=== PATIENT | female | born 1955 | race Caucasian/White ===

== ENCOUNTER 2016-07-01 19:35 | Emergency (ER) | payer OTHER ==
[~2016-07-01] VITALS: Ht 152.4 cm; Wt 81.4 kg
[~2016-07-01 19:35] MED LIST: ASPI81 PO; ATOR80TA41 PO; FISH1000 PO; GEMF600T PO; GLUCTAB PO; LISI5 PO; MECL-62 PO; METO25 PO
[2016-07-01 19:40] VITALS: BP 139/73; PULSE 87; RESP 16; TEMP 98.2; O2SAT 98
[2016-07-01] MEDS ORDERED: ATOR10TA15 PO (19:59)
[2016-07-01] MEDS ORDERED: [UNRECOGNIZED DRUG - OTHER] (19:59)
[2016-07-01] MEDS ORDERED: METO25TA3 PO (19:59)
[2016-07-01] MEDS ORDERED: METF1000 PO (19:59)
[2016-07-01] MEDS ORDERED: ENAL5TAB PO (19:59)
--- NOTE | 2016-07-01 20:04 | PD ---
HPI Chief Complaint: Musculoskeletal Complaint Time Seen by Provider: 20:01 Travel History International Travel<30 days: No Contact w/Intl Traveler<30days: No Traveled to known affect area: No History of Present Illness HPI 60-year-old female with a history of hypertension, hyperlipidemia, diabetes, CAD with stents presents to the emergency department for evaluation of right knee injury that occurred 5 days ago. Patient states that she was at work at [employer] 5 days ago and accidentally stepped on a drain cover which slipped causing her to slide and twist her right knee. States that she did not fall but she did injure her right knee when this occurred. States that she has had pain in the right knee since this occurred. Pain is aggravated with movement and weightbearing. Improved with rest. States she has been taking ibuprofen and Tylenol with minimal improvement of symptoms. Denies any prior injury or trauma to this knee. Denies any numbness or tingling, weakness. No other complaints. PFSH Past Medical History Arthritis: Yes Asthma: No Blood Disorders: No Anxiety: No Depression: No Heart Rhythm Problems: No Cancer: No Cardiac Catheterization: Yes Cardiovascular Problems: Yes High Cholesterol: Yes Chemotherapy: No Chest Pain: Yes Congestive Heart Failure: No Diabetes: Yes (DX 11/26/2009) Patient Takes Glucophage: Yes Diminished Hearing: No Endocrine: Yes Gastrointestinal Disorders: Yes GERD: Yes Genitourinary: Yes Hypertension: Yes Immune Disorder: No Implanted Vascular Access Dvce: No Kidney Stones: Yes (over 30 yrs ago) Musculoskeletal: Yes Neurologic: No Psychiatric: No Reproductive: No Respiratory: No Myocardial Infarction: Yes (X1) Radiation Therapy: No Sleep Apnea: No Thyroid Disease: No Menopausal: Yes : 4 Para: 2 : 2 Past Surgical History Abdominal Surgery: No Cardiac Surgery: Yes (Stent placement x2 November 2009) Coronary Stent: Yes (X2) Ear Surgery: No Endocrine Surgery: No Eye Surgery: No Genitourinary Surgery: No Gynecologic Surgery: No Oral Surgery: No Thoracic Surgery: No Tonsillectomy: Yes Other Surgery: Yes (TONSILLECTOMY "WHEN SHE WAS A LITTLE".) Social History Alcohol Use: No Tobacco Use: No Substance Use: No Allergies-Medications (Allergen,Severity, Reaction): Coded Allergies: No Known Allergies (Verified , 07/01/16) Reported Meds & Prescriptions Reported Meds & Active Scripts Active Reported [Heart Meds] Unknown Dose Atorvastatin (Atorvastatin Calcium) 10 Mg Tab Unknown Dose PO HS Metoprolol Tartrate 25 Mg Tab 25 Mg PO DAILY Enalapril (Enalapril Maleate) 5 Mg Tab 5 Mg PO DAILY Metformin (Metformin HCl) 1,000 Mg Tab 1,000 Mg PO BIDPC With meals Review of Systems Except as stated in HPI: all other systems reviewed are Neg Physical Exam Narrative GENERAL: Well-nourished and well-developed pleasant patient in no acute distress who is nontoxic appearing. SKIN: Warm and dry. HEAD: Normocephalic and atraumatic. EYES: No injection, drainage, or hyphema noted. PERRLA. EOMI. ENT: No nasal drainage noted. Oropharynx is clear. NECK: Supple and the trachea is midline. CARDIOVASCULAR: Regular rate and rhythm. RESPIRATORY: Breath sounds are equal bilaterally with no accessory muscle use, wheezing, rhonchi, or crackles. MUSCULOSKELETAL: Mild swelling of anterior right knee with tenderness to palpation of anterior medial and lateral aspects. Full range of motion however pain elicited with flexion. AP drawer sign negative, the joint is stable. No obvious deformities, cyanosis, or ecchymosis is present throughout the upper and lower extremities. DP pulses are 2+ bilaterally. Patient has full range of motion without any signs of neurovascular compromise. NEUROLOGICAL: Awake, alert, and oriented. Normal speech and gait. Cranial nerves are grossly intact. Data Data Last Documented VS Vital Signs Date Time Temp Pulse Resp B/P Pulse Ox O2 Delivery O2 Flow Rate FiO2 07/01/16 19:40 98.2 87 16 139/73 98 Orders Knee, Complete (4vws) (07/01/16 20:00) Splint Or Brace Apply/Monitor (07/01/16 20:53) [facility] Medical Decision Making Medical Screen Exam Complete: Yes Emergency Medical Condition: Yes Differential Diagnosis Knee sprain versus fracture versus meniscus injury versus arthritis Narrative Course 60-year-old female presents to the emergency department for evaluation of right knee injury that occurred 5 days ago when she twisted her knee at work. Patient is afebrile, vital signs are stable. Patient's right lower extremity is neurovascularly intact. X-ray imaging has been ordered and is pending. X-ray of the right knee shows a joint effusion, otherwise unremarkable. Discussed x-ray findings with the patient. Discussed with her supportive care. She is placed in an Luis Miguel wrap. Advised to follow-up with an orthopedist if her symptoms persist. Patient verbalizes understanding and agreement with treatment plan. Diagnosis Primary Impression: Right knee sprain Qualified Code: S83.91XA - Sprain of right knee, unspecified ligament, initial encounter Referrals: Orthopedist Patient Instructions: General Instructions, Knee Sprain (ED) Additional Instructions: Luis Miguel wrap. Elevate right knee. Apply ice for 20 minutes on, 20 minutes off. Take medication as prescribed. Do not take tramadol with alcohol while driving. Follow-up with your Primary Care Physician or an orthopedist if her symptoms persist. Return to the ED for any acute worsening of symptoms. Med/Other Pt SpecificInfo: Prescription(s) given Scripts Tramadol 50 Mg Tab50 Mg PO Q6H PRN (PAIN GREATER THAN 6) #20 TAB Ref 0 Prov:Gerardo Jean Baptiste MD 07/01/16 Disposition: 01 DISCHARGE HOME Condition: Stable Martina Rizzo Jul 01, 2016 20:04
--- NOTE | 2016-07-01 20:51 | RADHPO ---
EXAM DATE/TIME: 07/01/2016 20:14 [facility] COMPARISON: No previous studies available for comparison. INDICATIONS : Right knee pain from twisting a work few days prior. MEDICAL HISTORY : None. SURGICAL HISTORY : None. ENCOUNTER: Initial ACUITY: 3 days PAIN SCORE: 6/10 LOCATION: Right knee FINDINGS: There is a small suprapatellar effusion present. No evidence of fracture, dislocation or bony destruc tion. Mild degenerative arthritic change present. CONCLUSION: Joint effusion. No fracture. Jones Horne MD on July 01, 2016 at 20:36 Board Certified Radiologist. This report was verified electronically.
[2016-07-01] MEDS ORDERED: TRAM50TA PO (20:58)
== END 2016-07-01 21:11 | disposition home or self-care (01) ==
LOC: PHEFT 19:35
DX: S83.91XA Sprain of unspecified site of right knee, initial encounter (principal); I25.2 Old myocardial infarction; I10 Essential (primary) hypertension; E11.9 Type 2 diabetes mellitus without complications; E78.00 Pure hypercholesterolemia, unspecified; Z79.4 Long term (current) use of insulin; Z95.5 Presence of coronary angioplasty implant and graft; W18.41XA Slipping, tripping and stumbling without falling due to stepping on object, initial encounter; Y93.89 Activity, other specified; Y92.511 Restaurant or cafe as the place of occurrence of the external cause; Y99.0 Civilian activity done for income or pay
CPT/HCPCS: 73564; 99283

== ENCOUNTER 2016-12-20 06:56 | Day surgery (SDC) | payer OTHER ==
[~2016-12-20] VITALS: Ht 162.6 cm; Wt 80.5 kg
[2016-12-20] VITALS (9 sets, daily range): BP systolic 132–164; BP diastolic 80–86; PULSE 66–82; RESP 18–20; TEMP 98.2–98.4; O2SAT 96–99
[~2016-12-20 06:56] MED LIST changes: -ASPI81 PO; +ATOR10TA15 PO; -ATOR80TA41 PO; +ENAL5TAB PO; -FISH1000 PO; -GEMF600T PO; -GLUCTAB PO; -LISI5 PO; -MECL-62 PO; +METF1000 PO; -METO25 PO; +METO25TA3 PO; +TRAM50TA PO; +[UNRECOGNIZED DRUG - OTHER]
[2016-12-20] MEDS ORDERED: IOHEXOL 350 MG/ML 100 ML BTL (for Cath Lab) OTHER ONE (06:57)
[2016-12-20] MEDS ORDERED: ISOS30TA3 PO (07:39)
[2016-12-20] MEDS ORDERED: AMLO5TAB2 PO (07:39)
[2016-12-20] MEDS ORDERED: ASPI81TA81 (07:39)
[2016-12-20 07:46] LABS: AUTOMATED NEUTROPHIL # 4.1 TH/MM3 (1.8-7.7); BASOPHIL # 0.1 TH/MM3 (0-0.2); BASOPHIL % 1.1 % (0.0-2.0); EOSINOPHIL # 0.3 TH/MM3 (0-0.4); EOSINOPHIL % 3.9 % (0.0-4.0); HEMO FLAGS DIFF FINAL; LYMPH % 34.1 % (9.0-44.0); LYMPHOCYTE # 2.6 TH/MM3 (1.0-4.8); MEAN CELL VOLUME 90.3 FL (80.0-100.0); MEAN CORPUSCULAR HEMOGLOBIN 30.7 PG (27.0-34.0); MONO % 7.2 % (0.0-8.0); NEUT % 53.7 % (16.0-70.0); PLATELET COUNT 198 TH/MM3 (150-450); RED BLOOD COUNT 3.98 MIL/MM3 (4.00-5.30); RED CELL DISTRIBUTION WIDTH 12.7 % (11.6-17.2); WHITE BLOOD COUNT 7.7 TH/MM3 (4.0-11.0)
[2016-12-20 07:56] LABS: APTT (PATIENT) 26.5 SEC (24.3-30.1); INTERNATIONAL NORMALIZED RATIO 0.9 RATIO; PROTHROMBIN TIME - PATIENT 10.1 SEC (9.8-11.6)
[2016-12-20 08:00] LABS: POTASSIUM 4.2 MEQ/L (3.5-5.1)
[2016-12-20] MEDS ORDERED: NS 1000P @30 MLS/HR (KVO) IV SCH (08:00)
[2016-12-20] MEDS ORDERED: MIDAZOLAM HCL 2 MG/2 ML VIAL ONE ×2 (08:47→09:23)
[2016-12-20] MEDS ORDERED: HEPARIN-NS/PF INJ 1,000 ML ONE (08:47)
[2016-12-20] MEDS ORDERED: HEPARIN SODIUM - IV 10,000 UNITS/10 ML VIAL ONE (08:48)
[2016-12-20] MEDS ORDERED: NITROGLYCERIN INJ 5 ML ONE (08:48)
[2016-12-20] MEDS ORDERED: VERAPAMIL HCL 5 MG/2 ML VIAL ONE (08:48)
[2016-12-20] MEDS ORDERED: TIROFIBAN INFUSION INJ 250 ML IV ONE (09:16)
[2016-12-20] MEDS ORDERED: TICAGRELOR 90 MG TAB PO ONE (09:50)
--- NOTE | 2016-12-20 10:16 | CATHPROC ---
[employer] HIS Report Study Information Study Number Admission Scheduled Start Study Start [id number] Dec 20 2016 6:56AM 12/20/2016 Dec 20 2016 8:24AM [place] [facility] Cardiac Catheterization Admit Source Facility Department Other [facility] - [facility] Physician and Clinical Staff Initial Musa Kaplan Hot Strip Finisher Marcell RN, Jacobo Recorder Emi Packer,RT(R) Scrub Cristi Manjarrez RCIS(BS) X-Ray Carrillo BeltranRT(R) Procedures Performed Procedure Location (Site) Vessel Name Coronary Angiograms LCA Left Coronary Coronary Angiograms RCA Right Coronary Drug Eluting Inflatio LAD Dist Left Coronary Drug Eluting Inflatio RCA Dist Right Coronary Drug Eluting Inflatio RCA Mid Right Coronary Drug Eluting Inflatio RCA Prox Right Coronary L Heart Cath PTCA LAD Dist Left Coronary PTCA RCA Dist Right Coronary Wire insertion Radial (right) Radial Art. Equipment Time Skin Tanner Description Size Mfg Part Number Used/Scraped [id number] 09:14 [employer]OW [employer] WIRE, ASAHI PROWATER 180CM 180CM Used *[id number] TRANSDUCER, TRUWAVE [id number] 08:50 TIMMONS METZ * Used W/STOCKCOCK *[id number] *[id number] [id number] *[id number] [id number] *[id number] [phone] *[id number] [id number] *[id number] 08:50 MALLINCKRODT SYRINGE, ANGIOMAT 150ML 150ML *[id number] Used 2SUB MEDICAL CONCEPT DRAPE, RADIAL FEMORAL FULL 08:50 * [id number] *[id number] Used DEVELOPMENT BODY [id number] 08:50 [employer] INDUSTRIES PACK, CCL CUSTOM * Used *[id number] 08:50 [employer] SUPPORT, ARTERIAL ADULT 86526 *[id number] Used [id number] 08:50 MEDLINE PACER PEN, SKIN DUAL W/ RULER * Used *[id number] 09:26 MEDTRONIC BALLOON, 2.0 X 12MM EUPHORA 12MM Used *[id number] STENT, 2.25 22 RESOLUTE [id number] 09:47 MEDTRONIC 2.25 22 Used INTEGRITY RX *[id number] STENT, 2.25 22 RESOLUTE [id number] 09:33 MEDTRONIC 2.25 22 Used INTEGRITY RX *[id number] 09:55 MEDTRONIC STENT, 2.75 12MM RAÚL 2.75 12MM Used *[id number] 09:50 MEDTRONIC STENT, 2.75 18MM RAÚL 2.75 18MM Used *[id number] 09:27 [employer]INA [employer]TD 30 JO INDEFLATOR Used *[id number] BAND, RADIAL COMPRESSION TR [id number] 10:05 [employer] 24CM Used SHORT 24 *[id number] SHEATH, FR6 RADIAL PRELUDE 08:50 [employer] FR 6 [id number] Used EASE 11CM [id number] 08:50 [employer] WIRE, EXCHANGE 260CM 3MMJ 260CM Used *[id number] 08:50 NAMIC MANIFOLD, 4 PORT * Used *[id number] 08:50 NYCOMED OMNIPAQUE, 350 MG, 150ML 150ML [id number] Used [id number] 08:50 WORTH [employer] BLANKET,WARM AIR CCL * Used *[id number] CATHETER, FR5 OPTITORQUE [id number] 08:47 TERKimengi MEDICAL FR 5 Used RADIAL TIG 4.0 *[id number] CATHETER, FR5 OPTITORQUE [id number] 09:09 TERNetConstat FR 5 Used RADIAL TIG 4.0 *[id number] Equipment Model, Serial, Lot Number and Expiration Data Description Model Number Serial Number Lot Number Expiration Date BALLOON, 2.0 X 12MM EUPHORA [id number] 08-30-2018 STENT, 2.25 22 RESOLUTE [id number] 04-12-2018 INTEGRITY RX STENT, 2.25 22 RESOLUTE [id number] 05-27-2018 INTEGRITY RX STENT, 2.75 12MM RAÚL [id number] 09-01-2018 STENT, 2.75 18MM RAÚL [id number] 07-27-2018 History: Allergies Allergy Reaction No Known Allergies History: Risk Factors Family History of Hypertension Dyslipidemia Previous ME Previous Heart Failure Premature CAD Yes Yes Yes Yes No Prior Valve Prior PCI Prior PCIDate Prior CABG Surgery No Yes 11/28/2009 No Cerebrovascular Peripheral Artery Chronic Lung On Dialysis Diabetes Diabetes Therapy Disease Disease Disease No No No No Yes Oral History: Symptoms/Diagnosis Selection Items Chest pain History: CV Disease Selection Items Known CAD ME History: Stress Tests Stress or Imaging Studies Performed Yes Standard Exercise Stress Test No Stress Echo No Stress Test SPECT No Stress Test CMR No Cardiac CTA Coronary Calcium Score No No History: Other Current Smoker No Labs Hgb (g/dl) Hct (%) WBC (l/cumm) Platelets (thousands) 11.60-17.00 35.00-51.00 4.00-11.00 150.00-450.00 12.2 35 7.7 198 Glucose (mg/dl) BUN (mg/dl) Creatinine (mg/dl) BUN:Creatinine (1:x) 74.00-106.00 7.00-18.00 0.50-1.30 10.00-20.00 259 16 0.8 20 Na (meq/l) K (meq/l) 136.00-145.00 3.50-5.10 136 4.2 INR (PTT:PT) 0.90-1.10 0.9 CPK-MB (ng/ML) 0.50-3.60 Not Drawn Medication Medication Total Dose (Bolus/Oral) Medication Total Dosage/Unit 1% XYLOCAINE 20 mL AGGRASTAT BOLUS 42 meq/kg BRILLINTA 180 mg FENTANYL 100 mcg HEPARIN 3000 units NTG (IC) 250 mcg OXYGEN 2 l/min RADIAL COCKTAIL 5 mL (Bolus) VERSED 4 mg Medications (Bolus/Oral) Medication Time Given Dosage/Unit Administered By Reason VERSED 12/20/2016 9:04:59 AM 2 mg Jacobo Faith RN 2 mg VERSED given in lab by Jacobo Faith RN in Left Antecubital via Peripheral IV. 1% XYLOCAINE 12/20/2016 9:05:36 AM 20 mL Musa Lu 20 mL 1% XYLOCAINE given in lab by Musa Lu in Right Radial via Subcutaneous. Ntg 200mcg Verapamil 2.5mg Heparin RADIAL COCKTAIL 12/20/2016 9:08:53 AM 5 mL (Bolus) Musa Lu 2500U 5 mL (Bolus) RADIAL COCKTAIL given in lab by Musa Lu in Right Radial via Radial. Using [Solution Name]. Reason: Ntg 200mcg Verapamil 2.5mg Heparin 2500U. FENTANYL 12/20/2016 9:13:28 AM 50 mcg Jacobo Faith RN 50 mcg FENTANYL given in lab by Jacobo Faith RN via Peripheral IV. HEPARIN 12/20/2016 9:15:38 AM 3000 units Jacobo Faith RN 3000 units HEPARIN given in lab by Jacobo Faith RN via Peripheral IV. AGGRASTAT BOLUS 12/20/2016 9:17:30 AM 42 meq/kg Jacobo Faith RN 42 meq/kg AGGRASTAT BOLUS given in lab by Jacobo Faith RN via Peripheral IV. Amount given = 3490.2 me q. VERSED 12/20/2016 9:23:15 AM 2 mg Jacobo Faith RN 2 mg VERSED given in lab by Jacobo Faith RN via Peripheral IV. OXYGEN 12/20/2016 9:26:45 AM 2 l/min Jacobo Faith RN 2 l/min OXYGEN given in lab by Jacobo Faith RN via Nasal. NTG (IC) 12/20/2016 9:30:34 AM 50 mcg Aly, Musa 50 mcg NTG (IC) given in lab by Musa Lu via Intra-coronary. NTG (IC) 12/20/2016 9:31:02 AM 50 mcg Aly, Musa 50 mcg NTG (IC) given in lab by Musa Lu via Intra-coronary. NTG (IC) 12/20/2016 9:31:46 AM 50 mcg Aly, Musa 50 mcg NTG (IC) given in lab by Musa Lu via Intra-coronary. FENTANYL 12/20/2016 9:39:57 AM 50 mcg Jacobo Faith RN 50 mcg FENTANYL given in lab by Jacobo Faith RN via Peripheral IV. NTG (IC) 12/20/2016 9:46:30 AM 100 mcg Aly, Musa 100 mcg NTG (IC) given in lab by Musa Lu via Intra-coronary. BRILLINTA 12/20/2016 10:03:00 AM 180 mg Jacobo Faith RN 180 mg BRILLINTA given in lab by Jacobo Faith RN in Per mouth via Oral. Medication (Drip) Medication Time Given Dosage/Unit Concentration/Unit Diluent (ml) Solution AGGRASTAT DRIP 12/20/2016 9:21:51 AM 0.15 mcg/kg/min 12.5 mg 250 NaCl .9 0.15 mcg/kg/min AGGRASTAT DRIP given in lab by Jacobo Faith RN via Peripheral IV. Pump/Drip Flow = 15 ml/hr using NaCl .9 with a concentration of 12.5 mg in 250 ml. IV Solutions 12/20/2016 8:45:15 AM 0 mL (IV) 500 NaCl .9 Patient arrived on IV Solutions in Left Antecubital via Peripheral IV. Pump/Drip Flow = 20 ml/hr usin g NaCl .9. Initial Case Assessment Cardiovascular HR Rhythm NIBP Chest Pain 82 reg 145/84 0 Edema Present Skin color Skin None Normal Warm Circulatory - Right Pulses Dorsalis Pedis Femoral Radial 2 2 2 Scale (0,1,2,3,4,d) Circulatory - Left Pulses Dorsalis Pedis Femoral Radial 2 2 Scale (0,1,2,3,4,d) Circulatory - Lower Extremities Color Lower Right Color Lower Left Normal Normal Neurological State Oriented to time-place- Alert Moves all extremities person Respiration - General Respiration Rate SpO2 (%) (B/min) 10 98 Final Case Assessment Cardiovascular HR Rhythm NIBP Chest Pain 74 reg 152/84 0 Edema Present Skin color Skin None Normal Warm Circulatory - Right Pulses Dorsalis Pedis Femoral Brachial 2 2 2 Scale (0,1,2,3,4,d) Circulatory - Left Pulses Dorsalis Pedis Femoral Brachial 2 2 Scale (0,1,2,3,4,d) Circulatory - Lower Extremities Color Lower Right Color Lower Left Normal Normal Neurological State Oriented to time-place- Alert Moves all extremities person Respiration - General Respiration Rate SpO2 (%) O2 (lpm) (B/min) 11 99 2 Chronological Log Time Study Chronological Log 8:40:11 Patient arrived via Bed. 8:42:17 Patient Name, D.O.B, / Armband Verified By R.N. 8:42:18 Consent signed by the physician and the patient and verified by the [facility] staff. 8:42:20 Pre-op and post- op instructions given; patient acknowledges understanding of instructions. 8:42:21 Verbal Stimulation=2 Physical Stimulation=2 Airway=2 Respiration=2 TOTAL=8. (0=absent, 1=li mited, 2=present) 8:44:29 Patient has been NPO for More than 6Hrs. 8:44:29 Skin Breakdown-none 8:44:37 Allens test performed on the right radial and ulnar artery with a positive result by aroldo or 8:44:59 Patient Warmer Placed on the Table. 8:45:02 A # 20 IV was noted in the Antecubital (left). Grade = 0 8:45:15 Patient arrived on IV Solutions in Left Antecubital via Peripheral IV. Pump/Drip Flow = 20 ml/hr using NaCl .9. 8:45:32 History and physical on the chart or being dictated. Assessment: Initial Case, HR=82 BPM, Rhythm=reg, RWGW=846/84 mmhg, Chest Pain=0, Edema=None, Col or=Normal, Skin = Warm Right Pulses: Jun Ped=2, Femoral=2, Radial=2 Left Pulses: Jun Ped=2, Femoral=2 8:45:33 Lower Right Extremities: Color=Normal Lower Left Extremities: Color=Normal Neurological: State=Alert, Ox3, GANDHI Respiration: Resp=10 B/min, SpO2=98 % Vitals capture started with the following parameters, Patient=Adult, Interval=5 min, Initial Pre dqcpa=210 mmHg, 8:45:37 Deflation Rate=5 mmHg, Cuff placed on Right Arm 8:46:44 HR=94 bpm, SVEO=979/84 mmhg, SpO2=97.0 %, Resp=20 B/min, Pain=0, Rosa=10, Deluna=2 8:48:57 Bilateral groins prepped with 2% chlorhexidine, and draped after a 3 minute waiting time. 8:49:26 MD paged 8:51:18 HR=83 bpm, ZUOW=450/84 mmhg, SpO2=97.0 %, Resp=23 B/min, Pain=0, Rosa=10, Deluna=2 8:51:58 Reference ECG taken 8:56:17 HR=82 bpm, QQHQ=624/83 mmhg, SpO2=97.0 %, Resp=14 B/min, Deluna=2 8:58:28 MD paged 8:59:35 Pressure channel 1 zeroed. 9:01:20 HR=87 bpm, YUWM=264/81 mmhg, SpO2=97.0 %, Resp=16 B/min, Deluna=2 9:03:18 MD arrived. 9:04:59 2 mg VERSED given in lab by Jacobo Faith RN in Left Antecubital via Peripheral IV. Time Out. Correct patient, correct procedure, correct physician, power injector loaded with cont rast with surgical team 9:05:17 present. Time Out Concurred by MD and individual staff in procedure. 9:05:25 Case Start 9:05:29 Verbal Stimulation=2 Physical Stimulation=2 Airway=2 Respiration=2 TOTAL=8. (0=absent, 1=francois ited, 2=present) 9:05:36 20 mL 1% XYLOCAINE given in lab by Musa Lu in Right Radial via Subcutaneous. 9:06:19 HR=79 bpm, GQDZ=244/77 mmhg, SpO2=95.0 %, Resp=8 B/min, Pain=0, Rosa=10, Deluna=2 9:08:04 Access site was Radial Artery. right 9:08:24 A wire was inserted via Radial (right). A SHEATH, FR6 RADIAL PRELUDE EASE 11CM FR 6 was advanced into the Radial (right) using the Bre chirinos 9:08:39 technique. 5 mL (Bolus) RADIAL COCKTAIL given in lab by Musa Lu in Right Radial via Radial. Using [Angie ution Name]. Reason: 9:08:53 Ntg 200mcg Verapamil 2.5mg Heparin 2500U. A CATHETER, FR5 OPTITORQUE RADIAL TIG 4.0 FR 5 was advanced over a wire. OMNIPAQUE, 350 MG, 150M L 150ML 9:09:52 was used for injections. Recorded Pressure: Ao, HR=83, Condition=Condition 1 9:10:54 (Aorta) Ao 128/72/95 9:11:18 HR=84 bpm, CFER=098/76 mmhg, SpO2=95 %, Resp=17 B/min, Pain=0, Rosa=10, Deluna=2 9:12:32 The LCA was injected and visualized at various angles. OMNIPAQUE, 350 MG, 150ML 150ML used. 9:13:12 The RCA was injected and visualized at various angles. OMNIPAQUE, 350 MG, 150ML 150ML used. 9:13:28 50 mcg FENTANYL given in lab by Jacobo Faith RN via Peripheral IV. 9:13:41 Catheter was removed A XB 3.5 GUIDE CATHETER FR 6 was advanced over a wire. OMNIPAQUE, 350 MG, 150ML 150ML was used f or 9:14:09 injections. 9:15:38 3000 units HEPARIN given in lab by Jacobo Faith RN via Peripheral IV. 9:16:17 HR=86 bpm, AOXG=897/77 mmhg, SpO2=91.0 %, Resp=53 B/min, Pain=0, Rosa=10, Deluna=2 A XB 3.5 GUIDE CATHETER FR 6 was advanced over a wire. OMNIPAQUE, 350 MG, 150ML 150ML was used f or 9:16:23 injections. 9:17:30 42 meq/kg AGGRASTAT BOLUS given in lab by Jacobo Faith RN via Peripheral IV. Amount given = 3490.2 meq. After removing the current catheter a XB 3.0 GUIDE CATHETER FR 6 was advanced over a WIRE, EXCHA NGE 260CM 9:19:53 3MMJ 260CM. 9:21:19 HR=84 bpm, UNXP=677/87 mmhg, SpO2=94.0 %, Resp=22 B/min, Pain=0, Rosa=10, Deluna=2 0.15 mcg/kg/min AGGRASTAT DRIP given in lab by Jacobo Faith RN via Peripheral IV. Pump/Drip Flow = 15 ml/hr using 9:21:51 NaCl .9 with a concentration of 12.5 mg in 250 ml. 9:22:44 A WIRE, ASAHI PROWATER 180CM 180CM was inserted via Radial (right). 9:23:15 2 mg VERSED given in lab by Jacobo Faith RN via Peripheral IV. 9:24:26 Activated Clotting Time Drawn 9:25:18 Interventional wire has crossed the lesion 9:25:20 ACT (Normal Range 90-180) = 264 9:26:26 HR=82 bpm, YAJM=464/79 mmhg, SpO2=88.0 %, Resp=20 B/min, Pain=0, Rosa=10, Deluna=2 9:26:45 2 l/min OXYGEN given in lab by Jacobo Faith RN via Nasal. 9:26:57 A BALLOON, 2.0 X 12MM EUPHORA 12MM was inserted over WIRE, ASAHI PROWATER 180CM 180CM via th e LAD Dist. A BALLOON, 2.0 X 12MM EUPHORA 12MM over a WIRE, ASAHI PROWATER 180CM 180CM in the LAD Dist was i nflated 9:27:15 using a 30 JO INDEFLATOR at 8 jo for 30 sec. A BALLOON, 2.0 X 12MM EUPHORA 12MM over a WIRE, ASAHI PROWATER 180CM 180CM in the LAD Dist was i nflated 9:28:50 using a 30 JO INDEFLATOR at 13 jo for 30 sec. 9:29:41 Balloon Removed. 9:30:34 50 mcg NTG (IC) given in lab by Musa Lu via Intra-coronary. 9:31:02 50 mcg NTG (IC) given in lab by Musa Lu via Intra-coronary. 9:31:21 HR=79 bpm, VHYK=372/75 mmhg, SpO2=96.0 %, Resp=20 B/min, Pain=0, Rosa=10, Deluna=2 9:31:33 The LCA was injected and visualized at various angles. OMNIPAQUE, 350 MG, 150ML 150ML used. 9:31:46 50 mcg NTG (IC) given in lab by Musa Lu via Intra-coronary. A STENT, 2.25 22 RESOLUTE INTEGRITY RX 2.25 22 was advanced through a XB 3.0 GUIDE CATHETER FR 6 over a 9:33:31 WIRE, ASAHI PROWATER 180CM 180CM. A STENT, 2.25 22 RESOLUTE INTEGRITY RX 2.25 22 was deployed using a 30 JO INDEFLATOR at 9 atmos pheres for 9:33:45 40 seconds in the LAD Dist. 9:35:15 Delivery device removed 9:35:22 The LCA was injected and visualized at various angles. OMNIPAQUE, 350 MG, 150ML 150ML used. 9:36:22 HR=81 bpm, MGUU=807/70 mmhg, SpO2=95 %, Resp=16 B/min 9:36:34 Wire removed 9:36:41 Catheter was removed A 3DRC GUIDE CATHETER FR 6 was advanced over a wire. OMNIPAQUE, 350 MG, 150ML 150ML was used for 9:36:59 injections. 9:39:57 50 mcg FENTANYL given in lab by Jacobo Faith RN via Peripheral IV. 9:40:35 A WIRE, ASAHI PROWATER 180CM 180CM was inserted via Radial (right). 9:41:23 HR=78 bpm, ASYR=793/69 mmhg, SpO2=95.0 %, Resp=20 B/min, Pain=0, Rosa=10, Deluna=2 9:42:10 Interventional wire has crossed the lesion 9:44:02 A BALLOON, 2.0 X 12MM EUPHORA 12MM was inserted over WIRE, ASAHI PROWATER 180CM 180CM via th e RCA Dist. A BALLOON, 2.0 X 12MM EUPHORA 12MM over a WIRE, ASAHI PROWATER 180CM 180CM in the RCA Dist was i nflated 9:44:44 using a 30 JO INDEFLATOR at 12 jo for 30 sec. A BALLOON, 2.0 X 12MM EUPHORA 12MM over a WIRE, ASAHI PROWATER 180CM 180CM in the RCA Dist was i nflated 9:45:09 using a 30 JO INDEFLATOR at 13 jo for 30 sec. 9:46:00 Balloon Removed. 9:46:18 HR=75 bpm, NJJU=044/79 mmhg, SpO2=96.0 %, Resp=20 B/min, Pain=0, Rosa=10, Deluna=2 9:46:30 100 mcg NTG (IC) given in lab by Musa Lu via Intra-coronary. A STENT, 2.25 22 RESOLUTE INTEGRITY RX 2.25 22 was advanced through a 3DRC GUIDE CATHETER FR 6 over a 9:47:12 WIRE, ASAHI PROWATER 180CM 180CM. A STENT, 2.25 22 RESOLUTE INTEGRITY RX 2.25 22 was deployed using a 30 JO INDEFLATOR at 9 atmo spheres for 9:48:20 40 seconds in the RCA Dist. A STENT, 2.75 18MM RAÚL 2.75 18MM was advanced through a 3DRC GUIDE CATHETER FR 6 over a WIRE, ASAHI 9:50:53 PROWATER 180CM 180CM. 9:51:23 HR=75 bpm, EHGY=345/76 mmhg, SpO2=95.0 %, Resp=15 B/min, Pain=0, Rosa=10, Deluna=2 A STENT, 2.75 18MM RAÚL 2.75 18MM was deployed using a 30 JO INDEFLATOR at 17 atmospheres for 40 seconds 9:52:37 in the RCA Prox. 9:53:00 Delivery device removed 9:53:43 The RCA was injected and visualized at various angles. OMNIPAQUE, 350 MG, 150ML 150ML used. A STENT, 2.75 12MM RAÚL 2.75 12MM was advanced through a 3DRC GUIDE CATHETER FR 6 over a WIRE, ASAHI 9:55:19 PROWATER 180CM 180CM. A STENT, 2.75 12MM RAÚL 2.75 12MM was deployed using a 30 JO INDEFLATOR at 14 atmospheres for 40 seconds 9:55:54 in the RCA Mid. 9:56:22 HR=73 bpm, DHKU=958/74 mmhg, SpO2=95.0 %, Resp=14 B/min, Pain=0, Rosa=10, Deluna=2 9:57:37 Delivery device removed 9:58:16 Wire removed 9:58:57 Catheter was removed A MPA-2 INFINITI CATHETER FR 6 was advanced over a wire. OMNIPAQUE, 350 MG, 150ML 150ML was use d for 9:59:10 injections. Recorded Pressure: LV, HR=75, Condition=Condition 1 10:00:43 (Left Ventricle) LV 142/11/13 Recorded Pressure: LV, Ao, HR=82, Condition=Condition 1 10:01:04 (Left Ventricle) LV 155/18/20, (Aorta) Ao 154/74/107 10:01:21 HR=77 bpm, FUSH=976/84 mmhg, SpO2=97.0 %, Resp=26 B/min, Pain=0, Rosa=10, Deluna=2 10:03:00 180 mg BRILLINTA given in lab by Jacobo Faith RN in Per mouth via Oral. 10:03:50 Catheter was removed Assessment: Final Case, HR=74 BPM, Rhythm=reg, NPAN=701/84 mmhg, Chest Pain=0, Edema=None, [place] r=Normal, Skin = Warm Right Pulses: Jun Ped=2, Femoral=2, Brachial=2 Left Pulses: Jun Ped=2, Femoral=2 10:03:55 Lower Right Extremities: Color=Normal Lower Left Extremities: Color=Normal Neurological: State=Alert, Ox3, GANDHI Respiration: Resp=11 B/min, SpO2=99 %, O2=2 lpm 10:04:27 Catheter(s) removed without difficulty 10:04:29 Sheath removed Radial Compression Device Used. 10 mLs of air placed in BAND, RADIAL COMPRESSION TR SHORT 24 24 CM. Affected 10:04:36 hand 97 % O2 saturation. 10:04:55 Case End 10:04:57 Sterile dressing applied to site 10:04:58 No case complications noted. 10:04:58 Cine recording checked. 10:05:00 Bedside Report will be given. 10:05:01 Implantable Device card placed in patient's chart. 10:05:03 Contrast Scanned 10:05:05 A Left Heart Cath was performed. 10:05:07 Clinical correlaton risk stratification. 10:06:24 HR=72 bpm, ZDMG=904/85 mmhg, SpO2=99.0 %, Resp=20 B/min, Pain=0, Rosa=10, Deluna=2 10:10:55 Vitals capture stopped. End Study - Contrast Media Used In Study Contrast Total Opened (mL) Total Used (mL) Total Wasted (mL) Omnipaque 190 190 0 End Study - Maximum Contrast Load Max Contrast Load (mL) 519.3 End Study - Radiation Exposure Fluoro Time (minutes) 16.8 End Study - Sheaths Sheaths Pulled By Sheath Hold Time (min) Cristi Manjarrez End Study - Patient Disposition Complications Transferred To Interventional Outcome No Outpatient Bed successful
[2016-12-20] MEDS ORDERED: SODIUM CHLOR 0.9% 1000 ML INJ 1,000 ML IV SCH (10:24)
[2016-12-20] MEDS ORDERED: TIROFIBAN INFUSION INJ 250 ML IV SCH (10:24)
[2016-12-20] MEDS ORDERED: MISC INFORMATION XX ONE (10:30)
[2016-12-20] MEDS ORDERED: SODIUM CHLORIDE 0.9% FLUSH 5 ML FLUSH IVF PRN (10:30)
[2016-12-20] MEDS ORDERED: traMADol HCL 50 MG TAB PO PRN (10:30)
--- NOTE | 2016-12-20 10:57 | MA ---
cc: SONIA GUERRERO M.D. DATE: 12/20/2016 PROCEDURE Left heart catheterization, selective coronary angiography, left ventriculography, angioplasty and stent of the mid to distal LAD, angioplasty and stent x 3 of the right coronary artery. PROCEDURE NOTES The patient was brought to the cardiac catheterization laboratory in a fasting state after having signed informed consent. The right radial region was prepped and draped as per policy and anesthetized with 1% lidocaine. Arterial access was obtained via the right radial artery and a 6 Kazakh sheath placed. Coronary arteriography was performed using a Yoder catheter. Left ventriculography was done using a multipurpose catheter. Percutaneous coronary intervention was done as described below. There were no apparent immediate complications. A radial artery compression band was applied to her right wrist at the end of the case to achieve good hemostasis. HEMODYNAMIC DATA Left ventricle 155 with an end-diastolic pressure 18. Aorta 154/74 with a mean of 107. There was no significant transvalvular aortic gradient on pullback of the multipurpose catheter. CORONARY ARTERIOGRAPHY The left main is normal. The left anterior descending demonstrates a stent in its proximal portion and there is diffuse up to 20% re-stenosis of this stent. In the distal third of the mid LAD there is diffuse disease resulting in up to 99% stenosis. The LAD gives rise to a small tortuous diagonal arising from the proximal LAD, and this diagonal has 60% ostial proximal disease. There is a medium size ramus intermedius which has up to 50% proximal stenosis. The left circumflex is a small vessel giving rise to a fairly large obtuse marginal. The proximal left circumflex has up to 20% stenosis. The proximal and mid obtuse marginal have up to 20% stenosis. The right coronary artery is a medium size dominant vessel demonstrating a stent in its proximal portion. At the proximal edge of the stent there is diffuse disease resulting in up to 75% stenosis. In the distal right coronary there is also diffuse disease resulting in up to 75% stenosis. There may be up to 60% tubular stenosis in the mid vessel. LEFT VENTRICULOGRAPHY Contrast injection of the left ventricle reveals no definite segmental wall motion abnormalities. Ejection fraction is estimated at 55%. PERCUTANEOUS CORONARY INTERVENTION DESCRIPTION Aggrastat was given as per protocol. Adequate heparin was given during the procedure to achieve an ACT greater than 250 seconds. Using a 6 Kazakh XB 3.0 guiding catheter the ostium of the left main was re-engaged. We were initially unable to wire the subtotal occlusion in the mid LAD with a Prowater guidewire. With backup support from a 2.0 mm Euphora balloon catheter the disease was crossed and the tip of the wire positioned distally. Pre-dilation was done using the 2.0 mm Euphora balloon catheter. Multiple administrations of intracoronary nitroglycerin were administered. Stenting of the mid to distal LAD was then done using a 2.25 x 22 mm Resolute stent. Final angiography shows overall good results with reduction of the subtotal occlusion to roughly 0% residual with no definite evidence for dissection or distal embolization. There was residual diffuse up to 50% disease of the proximal third of the mid LAD. The guiding catheter was then exchanged for a progressive right guiding catheter. This was used to re-engage the right coronary artery. Using the same Prowater guidewire the proximal and distal disease was crossed without difficulty and the tip of the wire positioned distally. Pre-dilation was done using the same 2.0 mm Euphora balloon catheter which was inflated distally. Stenting of the distal disease was done using a 2.25 x 22 mm Resolute stent. Stenting of the more proximal disease was done using a 2.75 x 18 mm Resolute Wal[place] stent which was deployed at 17 atmospheres for 40 seconds. At this point the mid disease appeared more severe angiographically. It was decided to stent the mid vessel. This was done using a 2.75 x 12 mm Resolute Luke stent which was deployed at 17 atmospheres for 40 seconds. Final angiography shows overall good results with reduction of the multiple sites of disease to roughly 0% residual with no definite evidence for dissection or distal embolization. The patient tolerated the procedure well. There were no apparent immediate complications. CONCLUSIONS 1. Severe two-vessel coronary artery disease. 2. Right dominant system. 3. Status post angioplasty and stent of the mid to distal LAD, status post stent x 3 of the proximal, mid, and distal right coronary artery. 4. Normal left ventricular function with estimated ejection fraction of 55%. MD NIR Orta/YE /10:11 AM /10:47 AM ISA
[2016-12-20] MEDS: METOPROLOL TARTRATE 25 MG TAB PO SCH (14:20)
[2016-12-20] MEDS ORDERED: PLEASE DISCONTINUE PREVIOUS SUPPLEMENTAL SCALE INSULIN ORDERS ONE (15:45)
[2016-12-20] MEDS ORDERED: GLUCAGON 1 MG/ML VIAL OTHER PRN (15:45)
[2016-12-20] MEDS ORDERED: DEXTROSE 50% IN WATER 50 ML VIAL(D50) IV PUSH PRN (15:45)
[2016-12-20] MEDS: HIGH DOSE INSULIN NOVOLIN REGULAR SUPPLEMENTAL SCALE SQ SCH ×2 (17:00→21:00)
--- NOTE | 2016-12-20 19:21 | EKG ---
Date Performed: 12/20/2016 Time Performed: 07:42:22 PTAGE: 61 years EKG: Sinus rhythm . Diffuse ST-T abnormalities ischemia cannot be excluded Abnormal ECG PREVIOUS TRACING : 10/20/2014 20.59 compared to the previous EKG ST-T abnormalities are new DOCTOR: Chi Gómez Interpretating Date/Time 12/20/2016 19:19:46
[2016-12-20] MEDS ORDERED: ATORVASTATIN 40 MG TAB PO SCH (21:00)
[2016-12-20] MEDS: SODIUM CHLORIDE 0.9% FLUSH 5 ML FLUSH IVF SCH (21:00)
[2016-12-20] MEDS: TICAGRELOR 90 MG TAB PO SCH (21:00)
[2016-12-21] VITALS (11 sets, daily range): BP systolic 133–142; BP diastolic 69–83; PULSE 66–88; RESP 16–18; TEMP 97.2–98.6; O2SAT 98
[2016-12-21 07:03] LABS: AUTOMATED NEUTROPHIL # 5.2 TH/MM3 (1.8-7.7); BASOPHIL # 0.1 TH/MM3 (0-0.2); BASOPHIL % 0.8 % (0.0-2.0); EOSINOPHIL # 0.3 TH/MM3 (0-0.4); EOSINOPHIL % 3.4 % (0.0-4.0); HEMATOCRIT 37.2 % (35.0-46.0); HEMO FLAGS DIFF FINAL; LYMPH % 26.3 % (9.0-44.0); LYMPHOCYTE # 2.2 TH/MM3 (1.0-4.8); MEAN CELL VOLUME 89.9 FL (80.0-100.0); MEAN CORPUSCULAR HEMOGLOBIN 30.7 PG (27.0-34.0); MEAN CORPUSCULAR HGB CONC 34.2 % (32.0-36.0); MONO % 6.3 % (0.0-8.0); NEUT % 63.2 % (16.0-70.0); PLATELET COUNT 192 TH/MM3 (150-450); RED BLOOD COUNT 4.14 MIL/MM3 (4.00-5.30); RED CELL DISTRIBUTION WIDTH 13.2 % (11.6-17.2); WHITE BLOOD COUNT 8.2 TH/MM3 (4.0-11.0)
[2016-12-21 07:08] LABS: BICARBONATE 24.3 MEQ/L (21.0-32.0); POTASSIUM 3.7 MEQ/L (3.5-5.1)
[2016-12-21 07:10] LABS: HDL CHOLESTEROL 36.8 MG/DL (40.0-60.0)
--- NOTE | 2016-12-21 08:20 | PD.CARD.PN ---
Subjective Subjective Remarks No CP, dyspnea, wrist pain. Objective Medications Item Value Date Time Aspirin 81 mg 12/21/16 0900 (Aspirin Chew) DAILY/PO Amlodipine 5 mg 12/21/16 0900 Besylate DAILY/PO (Norvasc) Enalapril Maleate 5 mg 12/21/16 0900 (Vasotec) DAILY/PO Isosorbide 30 mg 12/21/16 0900 Mononitrate DAILY/PO (Imdur) Ticagrelor 90 mg 12/20/16 2100 (Brilinta) BID/PO 12/20/16 2100 Atorvastatin 40 mg 12/20/16 2100 Calcium HS/PO 12/20/16 2100 (Lipitor) Metoprolol 25 mg 12/20/16 1200 Tartrate DAILY/PO 12/20/16 1420 (Lopressor) Tirofiban/Sodium 250 ml @ 14.958 mls/hr 12/20/16 1024 Chloride .[id number] 12/20/16 2302 Vital Signs / I&O Vital Signs Date Time Temp Pulse Resp B/P (MAP) Pulse Ox O2 Delivery O2 Flow Rate FiO2 12/21/16 07:00 68 12/21/16 07:00 97.2 80 16 142/83 (102) 98 12/21/16 06:00 70 12/21/16 05:00 66 12/21/16 04:00 66 12/21/16 03:42 98.6 72 18 133/69 (90) 98 12/21/16 03:00 68 12/21/16 02:00 66 12/21/16 01:00 66 12/21/16 00:00 68 12/20/16 23:33 98.4 66 18 132/82 (99) 98 12/20/16 23:00 73 12/20/16 22:00 76 12/20/16 21:00 82 12/20/16 20:00 76 12/20/16 19:21 98.4 74 18 145/82 (103) 98 12/20/16 19:00 75 12/20/16 18:44 74 20 164/86 (112) 96 12/20/16 10:22 97 Room Air I/O 12/20/16 12/20/16 12/20/16 12/21/16 12/21/16 12/21/16 07:00 15:00 23:00 07:00 15:00 23:00 Intake Total 726 ml Balance 726 ml Intake Oral 480 ml IV Total 246 ml # Voids 5 Physical Exam GENERAL: Well developed, well nourished. No acute distress. HEENT: Jugular venous pressure is normal. CHEST: Lungs clear to auscultation bilaterally. Unlabored respiratory effort. CARDIAC: Regular rate and rhythm without S3, S4, or murmur. EXTREMITIES: No clubbing, cyanosis, or edema. Right radial arteriotomy site stable. Normal radial pulse. Laboratory Laboratory Tests Test 12/21/16 04:25 White Blood Count 8.2 TH/MM3 Red Blood Count 4.14 MIL/MM3 Hemoglobin 12.7 GM/DL Hematocrit 37.2 % Mean Corpuscular Volume 89.9 FL Mean Corpuscular Hemoglobin 30.7 PG Mean Corpuscular Hemoglobin Concent 34.2 % Red Cell Distribution Width 13.2 % Platelet Count 192 TH/MM3 Mean Platelet Volume 9.7 FL Neutrophils (%) (Auto) 63.2 % Lymphocytes (%) (Auto) 26.3 % Monocytes (%) (Auto) 6.3 % Eosinophils (%) (Auto) 3.4 % Basophils (%) (Auto) 0.8 % Neutrophils # (Auto) 5.2 TH/MM3 Lymphocytes # (Auto) 2.2 TH/MM3 Monocytes # (Auto) 0.5 TH/MM3 Eosinophils # (Auto) 0.3 TH/MM3 Basophils # (Auto) 0.1 TH/MM3 CBC Comment DIFF FINAL Differential Comment Blood Urea Nitrogen 14 MG/DL Creatinine 0.77 MG/DL Random Glucose 204 MG/DL Calcium Level 8.8 MG/DL Sodium Level 137 MEQ/L Potassium Level 3.7 MEQ/L Chloride Level 103 MEQ/L Carbon Dioxide Level 24.3 MEQ/L Anion Gap 10 MEQ/L Estimat Glomerular Filtration Rate 77 ML/MIN Total Creatine Kinase 107 U/L Triglycerides Level 396 MG/DL Cholesterol Level 148 MG/DL LDL Cholesterol 32 MG/DL HDL Cholesterol 36.8 MG/DL Cholesterol/HDL Ratio 4.02 RATIO Assessment and Plan Problem List: (1) Coronary artery disease ICD Codes: I25.10 - Coronary artery disease Status: Chronic Plan: Stable s/p stent x 3 of RCA and stent of mid to distal LAD. Right radial arteriotomy site stable. Renal indices stable. To discharge home, same home medications plus Brilinta 90 mg bid, 3-4 week f/u with me. (2) Hyperlipidemia ICD Codes: E78.5 - Hyperlipidemia Status: Chronic Plan: Actually good lipid profile except elevated triglycerides. Nonetheless, in light of the rapid, severe progression of CAD in just 2 years, recommend increase atorvastatin dosing to max 80 mg qd. (3) Hypertension ICD Codes: I10 - Hypertension Status: Acute Plan: Fluctuating BP's. Monitor as outpatient. Code Status full code Discussed Condition With patient Problem Qualifiers (1) Coronary artery disease: Qualified Codes: I25.110 - Atherosclerotic heart disease of [place] coronary artery with unstable angina pectoris (2) Hyperlipidemia: Qualified Codes: E78.2 - Mixed hyperlipidemia (3) Hypertension: Qualified Codes: I10 - Essential (primary) hypertension Musa Lu MD Dec 21, 2016 08:20
[2016-12-21] MEDS ORDERED: ASPI81TA2 PO (08:32)
[2016-12-21] MEDS ORDERED: ATOR1TAB18 PO (08:32)
[2016-12-21] MEDS ORDERED: BRIL90TA PO (08:32)
[2016-12-21] MEDS ORDERED: ASPIRIN 81 MG CHEW TAB PO SCH (09:00)
[2016-12-21] MEDS ORDERED: ENALAPRIL MALEATE 5 MG TAB PO SCH (09:00)
[2016-12-21] MEDS ORDERED: amLODIPine BESYLATE 5 MG TAB PO SCH (09:00)
[2016-12-21] MEDS ORDERED: ISOSORBIDE MONONITRATE 30 MG TAB PO SCH (09:00)
[2016-12-21] MEDS: HIGH DOSE INSULIN NOVOLIN REGULAR SUPPLEMENTAL SCALE SQ SCH (09:19)
[2016-12-21] MEDS: METOPROLOL TARTRATE 25 MG TAB PO SCH (09:21)
[2016-12-21] MEDS: TICAGRELOR 90 MG TAB PO SCH (09:22)
[2016-12-21] MEDS: SODIUM CHLORIDE 0.9% FLUSH 5 ML FLUSH IVF SCH (09:23)
== END 2016-12-21 11:00 | disposition home or self-care (01) ==
LOC: HDIC 06:56 → HDOC 06:56 → HCIN 19:16 → HDOC 12-21 11:00
PROVIDERS: ATTEND Internal Medicine Cardiovascular Disease
DX: R07.9 Chest pain, unspecified (principal); I25.10 Atherosclerotic heart disease of native coronary artery without angina pectoris; I10 Essential (primary) hypertension; E78.5 Hyperlipidemia, unspecified; R94.31 Abnormal electrocardiogram [ECG] [EKG]
CPT/HCPCS: 80048; 80061; 82550; 82948; 85002; 85025; 85610; 85730; 92928; 92929; 93005; 93458; C1725; C1769; C1874; C1887; C1893; J1644; J2250; J3010; J3246; J7030; Q9967